=== PATIENT | female | born 1995 | race Caucasian/White ===

== ENCOUNTER 2019-06-05 16:07 | Emergency (ER) | payer OTHER ==
[~2019-06-05] VITALS: Ht 154.9 cm; Wt 91.2 kg
--- NOTE | 2019-06-05 16:15 | NUR ---
PA IS AT THE BEDSIDE EVALUATING THE PT.
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
--- NOTE | 2019-06-05 16:20 | NUR ---
GUERO AND DR BOBO ARE AT THE BEDSIDE
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
--- NOTE | 2019-06-05 17:00 | NUR ---
[facility] [employer] S[employer] AND [employer] PROFESSIONAL[employer]EN, IS AT THE BEDSIDE.
--- NOTE | 2019-06-05 17:06 | NUR ---
PT LEFT FOR CT VIA [facility]
--- NOTE | 2019-06-05 17:12 | NUR ---
PT RETURNED FROM CT.
[2019-06-05] MEDS ORDERED: KETOROLAC TROMETHAMINE INJ 60 MG/2 ML VIAL IM ONE ×2 (17:15→17:30)
[2019-06-05 18:19] VITALS: BP 122/65
== END 2019-06-05 18:17 | disposition home or self-care (01) ==
LOC: ER 16:11
DX: M53.3 Sacrococcygeal disorders, not elsewhere classified (principal); Z60.2 Problems related to living alone
CPT/HCPCS: 72131; 84703; 96372; 99284; J1885